=== PATIENT | female | born 1980 | race Caucasian/White ===

== ENCOUNTER → 2017-08-03 | Outpatient (CLI) | payer OTHER ==
[~2017-08-03] VITALS: Ht 172.7 cm; Wt 90.3 kg
[~2017-08-03] MED LIST: ADVIL200 MG PO; AMOXICILLIN875 MG PO; EFFEXOR37.5 MG; MECLIZINE HCL12.5 M2 PO
== END | disposition home or self-care (01) ==
LOC: AMB 07:56
DX: K29.70 Gastritis, unspecified, without bleeding (principal); K22.70 Barrett's esophagus without dysplasia; K22.10 Ulcer of esophagus without bleeding; R19.7 Diarrhea, unspecified; Z90.49 Acquired absence of other specified parts of digestive tract; D64.9 Anemia, unspecified; F41.8 Other specified anxiety disorders; E78.1 Pure hyperglyceridemia; Z80.3 Family history of malignant neoplasm of breast; Z82.3 Family history of stroke; Z82.49 Family history of ischemic heart disease and other diseases of the circulatory system; Z83.3 Family history of diabetes mellitus; Z81.8 Family history of other mental and behavioral disorders
CPT/HCPCS: 88305; 88342 TC; J2250

== ENCOUNTER → 2018-05-24 | Outpatient (CLI) | payer OTHER ==
[~2018-05-24] VITALS: Ht 170.2 cm; Wt 91.6 kg
[~2018-05-24] MED LIST changes: +METAMUCIL POWD822 G1 PO
== END | disposition home or self-care (01) ==
LOC: AMB 12:43
PROC: 0DBP8ZX Excision of Rectum, Via Natural or Artificial Opening Endoscopic, Diagnostic (ICD-10-PCS; principal; 2018-05-24)
DX: K52.9 Noninfective gastroenteritis and colitis, unspecified (principal); D12.8 Benign neoplasm of rectum; D64.9 Anemia, unspecified; R74.0 Nonspecific elevation of levels of transaminase and lactic acid dehydrogenase [LDH]; E78.1 Pure hyperglyceridemia; Z90.49 Acquired absence of other specified parts of digestive tract; Z90.710 Acquired absence of both cervix and uterus; Z82.49 Family history of ischemic heart disease and other diseases of the circulatory system; Z83.3 Family history of diabetes mellitus; Z82.3 Family history of stroke; Z80.3 Family history of malignant neoplasm of breast
CPT/HCPCS: 88305